=== PATIENT | male | born 1995 | race Caucasian/White ===

== ENCOUNTER → 2021-01-05 09:52 | Outpatient (BNVA) | payer SELFPAY | PROVIDERS: Visit Provider Internal Medicine | DX: F11.99 Opioid use, unspecified with unspecified opioid-induced disorder (principal) | CPT/HCPCS: 80305; 99202 ==

== ENCOUNTER → 2021-01-12 15:28 | Outpatient (BNVA) | payer SELFPAY | PROVIDERS: Visit Provider Internal Medicine | DX: Z51.81 Encounter for therapeutic drug level monitoring (principal) | CPT/HCPCS: 80305; 99211 ==

== ENCOUNTER 2023-02-02 13:02 | Emergency (ER) | payer MEDICAID, SELFPAY ==
--- NOTE | 2023-02-02 13:26 | ED_ITS ---
HPI - General Adult General Chief complaint: Eye Problems <GAMA Cox - Last Filed: 02/02/23 13:43> Stated complaint: r eye inj at work <GAMA Cox - Last Filed: 02/02/23 13:43> Time Seen by Provider: 02/02/23 13:45 <GAMA Cox - Last Filed: 02/02/23 13:43> Source: patient <GAMA Josue - Last Filed: 02/02/23 15:15> Mode of arrival: ambulatory <GAMA Josue Last Filed: 02/02/23 15:15> Limitations: no limitations <GAMA Josue Last Filed: 02/02/23 15:15> History of Present Illness HPI narrative: Patient is a 27 year old assigned male at with a history of opiate use disorder presenting to the emergency department today with right eye pain. Patient states that he was weed whacking when a rock kicked up and hit him in his right eye. Patient denies any dizziness, lightheadedness, abdominal pain, nausea, vomiting, fever, chills, blurry vision, double vision, loss of vision, chest pain, difficulty breathing, shortness of breath, back pain, night sweats, pain with urination, increased urinary frequency, increased urinary urgency, blood in his urine or stool, syncope or a near syncopal episode, bowel incontinence, bladder incontinence, bowel retention, bladder retention, or any other complaints at this time. <GAMA Josue Last Filed: 02/02/23 15:15> Onset (ago): minute(s) <GAMA Josue - Last Filed: 02/02/23 15:15> Location: eyes and right <GAMA Josue Last Filed: 02/02/23 15:15> Radiation: non-radiation <GAMA Josue Last Filed: 02/02/23 15:15> Severity: mild <GAMA Josue Last Filed: 02/02/23 15:15> Severity scale (1-10): 2 <GAMA Josue Last Filed: 02/02/23 15:15> Quality: aching and dull <GAMA Josue Last Filed: 02/02/23 15:15> Pain Consistency: constant <GAMA Josue Last Filed: 02/02/23 15:15> Relieving factors: none <GAMA Josue Last Filed: 02/02/23 15:15> Exacerbating factors: none <GAMA Josue Last Filed: 02/02/23 15:15> Associated symptoms: denies other symptoms <GAMA Josue Last Filed: 02/02/23 15:15> Treatments prior to arrival: none <GAMA Josue Last Filed: 02/02/23 15:15> Related Data Home medications: Previous Rx's Medication Instructions Recorded clonidine HCl 0.1 mg tablet 0.1 mg PO TID 7 days #21 tabs 01/05/21 hydroxyzine pamoate 25 mg capsule 25 mg PO TID PRN nausea and 01/05/21 (Vistaril) vomiting 7 days #21 caps naloxone 4 mg/actuation nasal 4 mg intranasal Q2M PRN opioid 01/05/21 spray (Narcan) overdose #2 ea trazodone 50 mg tablet 50 mg PO BEDTIME PRN sleep #30 tabs 01/05/21 buprenorphine 8 mg-naloxone 2 mg 2 film sublingual DAILY 7 days #14 01/13/21 sublingual film (Suboxone) ea erythromycin 5 mg/gram (0.5 %) eye 0.5 inch ophthalmic (eye) Q4H #3.5 02/02/23 ointment grams <GAMA Cox Last Filed: 02/02/23 13:43> Allergies/adverse reactions: Allergies Allergy/AdvReac Type Severity Reaction Status Date / Time No Known Allergies Allergy Unverified 02/02/23 13:43 <GAMA Cox Last Filed: 02/02/23 13:43> Review of Systems Constitutional: Constitutional: Reports no additional constitutional complaints, Denies chills, Denies fever(s) and Denies night sweats <GAMA Josue Last Filed: 02/02/23 15:15> Eyes: Eyes: Reports no additional eye complaints, Denies blurry vision, Denies change in vision, Denies diplopia, Denies eye discharge, Denies loss of vision and Reports eye pain (right) <GAMA Josue - Last Filed: 02/02/23 15:15> ENT: Denies dizziness <GAMA Josue - Last Filed: 02/02/23 15:15> Cardiovascular: Cardiovascular: Reports no additional cardiovascular complaints, Denies chest pain, Denies lightheadedness, Denies Loss of Consciousness and Denies dyspnea <GAMA Josue - Last Filed: 02/02/23 15:15> Respiratory: Respiratory: Reports no additional respiratory complaints and Denies dyspnea <GAMA Josue - Last Filed: 02/02/23 15:15> Gastrointestinal: Gastrointestinal: Reports no additional gastrointestinal complaints, Denies abdominal pain, Denies melena, Denies hematochezia, Denies change in bowel habits and Denies change in stool character <GAMA Josue - Last Filed: 02/02/23 15:15> Genitourinary: Genitourinary: Reports no additional male genitourinary complaints, Denies hematuria, Denies oliguria, Denies difficulty urinating, Denies dysuria, Denies urinary frequency, Denies urinary hesitancy, Denies urinary incontinence and Denies urinary urgency <GAMA Josue - Last Filed: 02/02/23 15:15> Musculoskeletal: Musculoskeletal: Reports no additional musculoskeletal complaints, Denies numbness and Denies tingling <GAMA Josue - Last Filed: 02/02/23 15:15> Neurologic: Denies dizziness, Denies loss of vision, Denies numbness and Denies tingling <GAMA Josue - Last Filed: 02/02/23 15:15> Psychiatric: Psychiatric: Reports no additional psychiatric complaints <GAMA Josue - Last Filed: 02/02/23 15:15> Endocrine: Endocrine: Reports no additional endocrine complaints <GAMA Josue - Last Filed: 02/02/23 15:15> Hematologic/Lymphatic: Hematologic/Lymphatic: Reports no additional hematologic/lymphatic complaints <GAMA Josue - Last Filed: 02/02/23 15:15> Allergic/Immunologic: Allergic/Immunologic: Reports no additional allergic/immunologic complaints <GAMA Josue - Last Filed: 02/02/23 15:15> PMFSH Past Medical History Attestation statement: The following information was validated with the patient. <GAMA Josue - Last Filed: 02/02/23 15:15> Source: old records reviewed and nursing notes reviewed <GAMA Josue - Last Filed: 02/02/23 15:15> Medical History: Medical History Opioid use disorder <GAMA Cox - Last Filed: 02/02/23 13:43> Social History Social History: Social History Advance Directives: No Advance Directives Information Provided: No <GAMA Cox - Last Filed: 02/02/23 13:43> Physical Exam ED Vital Signs: Vital Signs - 24 hr 02/02/23 13:41 Temperature 98.4 F Pulse Rate 86 Respiratory Rate 16 Blood Pressure 133/88 Pulse Oximetry 95 Oxygen Delivery Method Room Air BMI result Body Mass Index 28.9 <GAMA Cox - Last Filed: 02/02/23 13:43> Vital Signs - 24 hr 02/02/23 13:41 Temperature 98.4 F Pulse Rate 86 Respiratory Rate 16 Blood Pressure 133/88 Pulse Oximetry 95 Oxygen Delivery Method Room Air BMI result Body Mass Index 28.9 <GAMA Josue - Last Filed: 02/02/23 15:15> Const General: cooperative, no acute distress, alert and awake <GAMA Josue - Last Filed: 02/02/23 15:15> Nutritional Appearance: well nourished <GAMA Josue - Last Filed: 02/02/23 15:15> Orientation/consciousness: patient oriented x3 <GAMA Josue - Last Filed: 02/02/23 15:15> Limitations: no limitations <GAMA Josue - Last Filed: 02/02/23 15:15> HENMT Head: Yes normal to inspection and Yes atraumatic <GAMA Josue Last Filed: 02/02/23 15:15> Ears: hearing grossly normal bilaterally and external ears normal <Corrina Ptael IN - Last Filed: 02/02/23 15:15> General nose exam: Normal external nose present, no nasal discharge noted and no epistaxis <Corrina Patel IN - Last Filed: 02/02/23 15:15> Face and sinus: Yes normal facial exam, No abrasion and No laceration <Corrina Patel IN - Last Filed: 02/02/23 15:15> Mouth: Normal oral and palatal mucosa present, no drooling and no muffled voice <Corrina Patel IN - Last Filed: 02/02/23 15:15> Eyes Periorbital: periorbital findings normal <Corrina Patel IN - Last Filed: 02/02/23 15:15> Eyelids: Yes eyelids normal <Corrina Patel IN - Last Filed: 02/02/23 15:15> Conjunctivae: conjunctivae normal <Corrina Patel IN - Last Filed: 02/02/23 15:15> Corneas: corneas abnormal on the right abrasion <Corrina Woodsonloki IN - Last Filed: 02/02/23 15:15> Pupils: Equal, round and reactive pupils present <Corrina Patel IN - Last Filed: 02/02/23 15:15> EOM: EOMs intact bilaterally <Corrina Woodsonloki IN - Last Filed: 02/02/23 15:15> Neck Neck: Yes normal visual inspection, Yes full ROM and Yes no lymphadenopathy <Corrina Patel IN - Last Filed: 02/02/23 15:15> Chest Chest palpation & inspection: normal inspection of the chest <Corrina Woodsonloki IN - Last Filed: 02/02/23 15:15> Resp Effort & Inspection: normal respiratory effort and able to speak in complete sentences <Corrina Woodsonloki IN - Last Filed: 02/02/23 15:15> GI Inspection: Yes normal to inspection <Corrina Woodsonloki IN - Last Filed: 02/02/23 15:15> Neuro General: patient oriented x3 and moves all extremities <Corrina Woodsonloki IN - Last Filed: 02/02/23 15:15> Cranial nerves: Yes Equal, round and reactive pupils present <Corrina Woodsonloki IN - Last Filed: 02/02/23 15:15> Cognition (Neuro): normal cognition <Corrina PatelGAMA - Last Filed: 02/02/23 15:15> Motor exam (neuro): 5/5 motor strength present throughout <Corrina PatelGAMA - Last Filed: 02/02/23 15:15> Sensory Exam: Normal double simultaneous stimulation for sensation <Corrina PatelGAMA - Last Filed: 02/02/23 15:15> Coordination: [id number] test normal <Corrina PatelGAMA - Last Filed: 02/02/23 15:15> Extrem General: Yes normal to inspection, Yes full ROM and Yes capillary refill normal <Corrina WoodsonGAMA manjarrez - Last Filed: 02/02/23 15:15> Psych Appearance: grossly normal <Corrina PatelGAMA - Last Filed: 02/02/23 15:15> Mental Status: mental status grossly normal <Corrina WoodsonGAMA manjarrez - Last Filed: 02/02/23 15:15> Affect: normal affect <Corrinamonika WoodsonGAMA manjarrez - Last Filed: 02/02/23 15:15> Attitude: cooperative <Corrina WoodsonGAMA manjarrez - Last Filed: 02/02/23 15:15> Thought process: Normal thought process present <Corrinamonika WoodsonGAMA manjarrez - Last Filed: 02/02/23 15:15> Thought content: Normal thought content present <Corrina PatelGAMA - Last Filed: 02/02/23 15:15> Insight: Good insight present (Psych) <Corrinamonika WoodsonGAMA manjarrez - Last Filed: 02/02/23 15:15> Course Course Course Narrative: 27 year old male with PMH of opioid use disorder presents with right eye injury at work, he is a business banking sales assistant. Patient reports he wasn't wearing eye protection and a rock struck his eye. Patient denies use of glasses or contacts. Patient endorses blurry vision and photophobia. Patient denies current drug use. PE: injected right sided conjunctiva and photophobia Plan: Fluorescein stain and tetracaine, visual acuity <Billie De La Cruz PA - Last Filed: 02/02/23 13:43> Medical Decision Making Medical Decision Making MDM Narrative: Patient is a 27 year old assigned male at with a history of opiate use disorder presenting to the emergency department today with right eye pain. Patient's physical exam showed a right corneal abrasion. Patient's ocular pressures were normal at 10 on both sides. Vision 20/30 on both sides. I explained my physical exam findings as well as all test results to the patient. I answered all questions asked by the patient. I stressed the importance of the patient taking his medication as prescribed. I stressed the importance of the patient following up with his primary care provider. I stressed the importance of the patient returning to the emergency department immediately if his symptoms were to worsen or if he were to develop any dizziness, shortness of breath, difficulty breathing, chest pain, blurry vision, loss of vision, nausea, vomiting, abdominal pain, fever, chills, back pain, or any other complaints. Patient verbalized agreement and understanding with this treatment plan and discharge. <GAMA Josue - Last Filed: 02/02/23 15:15> Differential Diagnosis Differential Diagnoses: The differential diagnosis associated with the presentation includes <GAMA Josue Last Filed: 02/02/23 15:15> right eye pain, corneal abrasion <GAMA Josue Last Filed: 02/02/23 15:15> Discharge Plan Discharge Clinical Impression: Corneal abrasion <GAMA Cox Last Filed: 02/02/23 13:43> Patient Disposition: Home, Self-Care <GAMA Cox Last Filed: 02/02/23 13:43> Instructions: Corneal Abrasion (DC) <GAMA Cox Last Filed: 02/02/23 13:43> Additional Instructions: Follow up with your primary care provider. Return to the emergency department immediately if your symptoms worsen or if you develop any dizziness, shortness of breath, difficulty breathing, chest pain, blurry vision, loss of vision, nausea, vomiting, abdominal pain, fever, chills, back pain, or any other complaints. <GAMA Cox Last Filed: 02/02/23 13:43> Prescriptions: New erythromycin 5 mg/gram (0.5 %) ointment 0.5 inch ophthalmic (eye) Q4H Qty: 3.5 0RF No Action buprenorphine-naloxone [Suboxone] 8-2 mg film 2 film sublingual DAILY 7 Days Qty: 14 0RF Rx Instructions: place 1 strip/tab under (each) side of tongue Narcan 4 mg/actuation spray,non-aerosol 4 mg intranasal Q2M PRN (Reason: opioid overdose) Qty: 2 1RF Rx Instructions: spray 1 dose into ONE nostril; alternate nostrils w each dose until help arrives trazodone 50 mg tablet 50 mg PO BEDTIME PRN (Reason: sleep) Qty: 30 1RF hydroxyzine pamoate [Vistaril] 25 mg capsule 25 mg PO TID PRN (Reason: nausea and vomiting) 7 Days Qty: 21 0RF clonidine HCl 0.1 mg tablet 0.1 mg PO TID 7 Days Qty: 21 0RF <GAMA Cox - Last Filed: 02/02/23 13:43> Referrals: [facility] Family Medicine [Provider Group] (Call to establish and follow up with a primary care provider. If you already have a primary care provider, please follow up with them.) [facility] Primary Care, Jeff [Provider Group] (Call to establish and follow up with a primary care provider. If you already have a primary care provider, please follow up with them.) [facility] Primary Care,Ritesh [Provider Group] (Call to establish and follow up with a primary care provider. If you already have a primary care provider, please follow up with them.) <GAMA Cox - Last Filed: 02/02/23 13:43> Interventions: ED Discharge Assessment Last Done: 02/02/23 14:11 <GAMA Cox - Last Filed: 02/02/23 13:43> Discharge Date/Time: 02/02/23 14:11 <GAMA Cox - Last Filed: 02/02/23 13:43> Print Language: Malian <GAMA Cox - Last Filed: 02/02/23 13:43>
[2023-02-02 13:41] VITALS: BP 133/88; PULSE 86; RESP 16; TEMP 36.9; O2SAT 95; BMI 28.9
== END 2023-02-02 14:11 | disposition home or self-care (01) ==
PROVIDERS: Emergency Provider Emergency Medicine
DX: S05.01XA Injury of conjunctiva and corneal abrasion without foreign body, right eye, initial encounter (principal); W20.8XXA Other cause of strike by thrown, projected or falling object, initial encounter; Y93.H2 Activity, gardening and landscaping; Y92.017 Garden or yard in single-family (private) house as the place of occurrence of the external cause; Y99.9 Unspecified external cause status
CPT/HCPCS: 99283; 99284

== ENCOUNTER 2023-03-30 16:24 | Emergency (ER) | payer MEDICAID, SELFPAY ==
--- NOTE | 2023-03-30 16:30 | ED.GENADULT ---
HPI - General Adult General Chief complaint: Abdominal Pain Stated complaint: abd pain vomiting Time Seen by Provider: 03/30/23 17:51 Source: patient Mode of arrival: ambulatory Limitations: no limitations History of Present Illness HPI narrative: Patient is a 27-year-old male who presents emergency department for evaluation of abdominal pain with nausea and vomiting. He went to urgent care earlier today and was advised to come to the emergency department. Symptom onset was 3 days ago with upper abdominal pain, nausea and vomiting. Denies diarrhea/constipation, bloody or dark stools, dysuria, urinary frequency/urgency/hesitancy. Of note he was discharged from detox the day prior to symptom onset, detox from opiates for which she is being prescribed methadone, and reports that he was tolerating this well while in detox. Denies any recreational drug or alcohol usage. His symptoms have actually been improving over the past day and half, he is able to tolerate fluids. Related Data Previous Rx's Medication Instructions Recorded clonidine HCl 0.1 mg tablet 0.1 mg PO TID 7 days #21 tabs 01/05/21 hydroxyzine pamoate 25 mg capsule 25 mg PO TID PRN nausea and 01/05/21 (Vistaril) vomiting 7 days #21 caps naloxone 4 mg/actuation nasal 4 mg intranasal Q2M PRN opioid 01/05/21 spray (Narcan) overdose #2 ea trazodone 50 mg tablet 50 mg PO BEDTIME PRN sleep #30 tabs 01/05/21 buprenorphine 8 mg-naloxone 2 mg 2 film sublingual DAILY 7 days #14 01/13/21 sublingual film (Suboxone) ea erythromycin 5 mg/gram (0.5 %) eye 0.5 inch ophthalmic (eye) Q4H #3.5 02/02/23 ointment grams ondansetron 4 mg disintegrating 4 mg PO Q8H PRN nausea and 03/30/23 tablet vomiting #10 tabs Allergies Allergy/AdvReac Type Severity Reaction Status Date / Time No Known Allergies Allergy Verified 03/30/23 16:34 Review of Systems Review of Systems: Constitutional : No Weight loss, No Fever, No Chills ENT/Mouth :? No sore throat, No Rhinorrhea Eyes: No Swelling, No Redness Cardiovascular : No Chest Pain, No SOB, No Edema Respiratory : No Cough, No Sputum, No Wheezing Gastrointestinal : Positive Nausea, Positive Vomiting, no Diarrhea, positive abdominal pain, No Hematochezia, No Melena Genitourinary : No Dysuria, No Urinary Frequency, No Hematuria, No Urgency? Musculoskeletal : No joint pain, No Myalgias, No Joint Swelling Skin : No Skin Lesions, No rash Neuro : No Weakness, No Numbness, No Dizziness, No Headache Psych : No Anxiety/Panic, No Depression Heme/Lymph: No Bruising, No Lymphadenopathy Endocrine : No Polyuria, No Polydipsia Yes all other systems are reviewed and are negative [facility] Past Medical History Attestation statement: The following information was validated with the patient. Source: old records reviewed Medical History Opioid use disorder Social History Social History Advance Directives: No Advance Directives Information Provided: Yes Physical Exam ED Vital Signs: Vital Signs - 24 hr 03/30/23 16:31 03/30/23 18:29 Temperature 97.4 F Pulse Rate 74 58 Respiratory Rate 16 14 Blood Pressure 119/79 117/73 Pulse Oximetry 98 99 Oxygen Delivery Method Room Air Room Air BMI result Body Mass Index 28.9 Appearance: Alert.?Oriented to person, place and time. No acute distress.?Normal affect. Eyes: Pupils equal, round and reactive to light.? ENT: Pharynx normal.?? Neck: Normal inspection.? Neck supple.?? CVS: Heart sounds normal. Normal heart rate and rhythm.? Pulses normal.?? Respiratory: No respiratory distress.? Lung sounds clear to auscultation bilaterally?? Abdomen: Soft and non-tender negative Rodriguez sign. No rebound tenderness. No rigidity. No guarding.. Normoactive bowel sounds. ? Skin: Skin warm and dry.? Normal skin color.? Extremities: No lower extremity edema.? Neuro: Moves all extremities spontaneously. Sensation intact bilaterally. Ambulates with normal steady gait. Course Course Course Narrative: This is an RME: Additional HPI, ROS, PE not included below will be deferred to primary provider. 27 year old male presents w/ abdominal pain ( epigastric and LUQ), nausea, vomiting since monday. Patient doesnt drink alcohol but concerned about pancreatitis. Also reports a foul stench coming from his mouth Plan- labs, urine Reevaluation(s) Reevaluation #1: CBC reveals no leukocytosis or anemia, CMP is overall unremarkable, lipase is within normal limits, in addition to physical examination does not appear consistent with cholecystitis, pancreatitis, not consistent with acute abdomen. Urinalysis is without evidence of infection or hematuria. Symptoms likely consistent with viral gastroenteritis, and his symptoms are actually improving. Discussed plan of care, advised Zofran in the ED and p.o. trial, however he would like to be discharged at this time which I think is reasonable. He is stable. Reviewed worrisome signs and symptoms that would warrant re-evaluation in the emergency department. Outpatient follow-up with primary care provider as needed. Time: 18:03 Medical Decision Making Medical Decision Making [facility] Narrative: Patient is a 27-year-old male with history of opiate use disorder for which he is prescribed methadone presenting to emergency department for evaluation of abdominal pain with nausea and vomiting as noted in HPI. At the time of my examination is overall well-appearing, nontoxic, afebrile. Abdominal examination is benign, unlikely acute abdomen. Will obtain CBC to evaluate for leukocytosis/ anemia, CMP and lipase to evaluate for abnormal electrolytes /abnormal renal function/ abnormal hepatic/biliary function, and Urinalysis. Differential Diagnosis Differential Diagnoses: The differential diagnosis associated with the presentation includes (Cholecystitis, cholelithiasis, cholangitis, pancreatitis, gastroenteritis, GERD, urinary tract infection, nephrolithiasis) Lab Data [facility] Lab Attestation statement: I reviewed the patient's lab results. (Please see course for additional explanation) 03/30/23 16:47 03/30/23 16:48 Labs: Lab Results 03/30/23 03/30/23 03/30/23 Range/Units 16:47 16:48 18:23 WBC 6.7 (4.8-10.8) X10*3/uL RBC 5.38 (4.60-5.80) X10*6/uL Hgb 15.0 (14.0-18.0) g/dl Hct 43.4 (42.0-52.0) % MCV 80.7 (80.0-98.0) fL MCH 27.9 (27.0-33.0) pg MCHC 34.6 (31.0-36.0) g/dl RDW 12.7 (11.0-16.0) % Plt Count 257 (160-400) X10*3/uL MPV 9.6 (9.4-12.4) fL Immature Gran % (Auto) 0.3 (0.0-0.4) % Neut % (Auto) 51.1 (45-73) % Lymph % (Auto) 34.7 (20-40) % [place] % (Auto) 11.9 H (2-11) % Eos % (Auto) 1.6 (0-4) % Baso % (Auto) 0.4 (0-2) % Lymph # (Auto) 2.3 (1.2-4.9) X10*3/uL [place] # (Auto) 0.8 (0.1-1.2) X10*3/uL Eos # (Auto) 0.1 (0.0-0.4) X10*3/uL Baso # (Auto) 0.0 (0.0-0.2) X10*3/uL Abs Immat Gran (auto) 0.02 (0.00-0.03) X10*3/uL Absolute Neuts (auto) 3.4 (2.0-8.3) x10*3/uL Absolute Nucleated RBC 0.000 (0.0-0.012) X10*3/uL Nucleated RBC % (auto) 0.0 (0.0-0.2) /100WBC Sodium 137 (135-145) mmol/L Potassium 3.7 (3.3-5.1) mmol/L Chloride 99 (96-108) mmol/L Carbon Dioxide 25 (22-29) mmol/L Anion Gap 17 (12-20) BUN 13 (9-16) mg/dL Creatinine 0.77 (0.5-1.4) mg/dL Estim Creat Clear Calc 183.7 Estimated GFR > 60 Random Glucose 105 (60-115) mg/dL Calcium 10.6 H (8.4-10.2) mg/dL Magnesium 2.0 (1.6-2.6) mg/dL Total Bilirubin 0.7 (0.0-1.0) mg/dL AST 15 (5-37) U/L ALT 23 (0-40) U/L Alkaline Phosphatase 83 (39-117) U/L Total Protein 8.3 H (6.5-8.0) g/dL Albumin 4.8 (3.5-5.0) g/dL Lipase 8 (8-78) U/L Urine Color Dark Yellow Urine Appearance Clear Urine pH 5.5 (5.0-9.0) Ur Specific [place] >= 1.030 H (1.005-1.025) Urine Protein Negative (Neg-Trace) mg/dL Urine Glucose (UA) Negative (Negative) mg/dL Urine Ketones Trace (Negative) mg/dL Urine Blood Negative (Negative) Urine Nitrite Negative (Negative) Ur Leukocyte Esterase Negative (Negative) Independent Historian Clinical information obtained from an independent historian. History obtained from or confirmed by: Parent (Mother's present who affirms history) Tests considered The following testing was considered but not selected: I considered ultrasound imaging of the abdomen, however abdominal examination is benign, low suspicion for acute abdomen at this time Prescription Management I considered prescription management with: Other (Antiemetic) Discharge Plan Discharge Clinical Impression: Gastroenteritis Patient Disposition: Home, Self-Care Instructions: Gastroenteritis (ED), Acute Nausea and Vomiting (ED) Additional Instructions: As we discussed, your blood work today was all normal, this is very reassuring. Your urine sample ____ You symptoms are most likely due to a viral stomach bug. I have sent a prescription for Zofran, a nausea medication to your pharmacy. Introduce a bland diet including crackers, bananas, rice, soup, toast, and boiled vegetables. This may progress to plain baked or boiled chicken or turkey. Avoid dairy products or foods high in fat or grease. Return to the emergency department with any new or worsening symptoms or concerns. Follow-up with primary care provider as needed Prescriptions: New ondansetron 4 mg tablet,disintegrating 4 mg PO Q8H PRN (Reason: nausea and vomiting) Qty: 10 0RF No Action buprenorphine-naloxone [Suboxone] 8-2 mg film 2 film sublingual DAILY 7 Days Qty: 14 0RF Rx Instructions: place 1 strip/tab under (each) side of tongue erythromycin 5 mg/gram (0.5 %) ointment 0.5 inch ophthalmic (eye) Q4H Qty: 3.5 0RF Narcan 4 mg/actuation spray,non-aerosol 4 mg intranasal Q2M PRN (Reason: opioid overdose) Qty: 2 1RF Rx Instructions: spray 1 dose into ONE nostril; alternate nostrils w each dose until help arrives trazodone 50 mg tablet 50 mg PO BEDTIME PRN (Reason: sleep) Qty: 30 1RF hydroxyzine pamoate [Vistaril] 25 mg capsule 25 mg PO TID PRN (Reason: nausea and vomiting) 7 Days Qty: 21 0RF clonidine HCl 0.1 mg tablet 0.1 mg PO TID 7 Days Qty: 21 0RF Referrals: Physician,Unknown J [Primary Care Provider] -
[2023-03-30 16:31] VITALS: BP 119/79; PULSE 74; RESP 16; TEMP 36.3; O2SAT 98; BMI 28.9
[2023-03-30 16:51] LABS: MANUAL DIFF FLAG NO
[2023-03-30 17:08] LABS: Basophils Percent Auto 0.4 % (0-2); Eosinophils Absolute Auto 0.1 X10*3/uL (0.0-0.4); Eosinophils Percent Auto 1.6 % (0-4); Hematocrit 43.4 % (42.0-52.0); Imm Gran Abs Auto 0.02 X10*3/uL (0.00-0.03); Imm Gran Pct Auto 0.3 % (0.0-0.4); Lymphocytes Absolute Auto 2.3 X10*3/uL (1.2-4.9); Lymphocytes Percent Auto 34.7 % (20-40); Mean Corpuscular HGB Conc 34.6 g/dl (31.0-36.0); Mean Corpuscular Hemoglobin 27.9 pg (27.0-33.0); Mean Corpuscular Volume 80.7 fL (80.0-98.0); Mean Platelet Volume 9.6 fL (9.4-12.4); Monocytes Absolute Auto 0.8 X10*3/uL (0.1-1.2); Monocytes Percent Auto 11.9 % (2-11); Neutrophils Absolute Auto 3.4 x10*3/uL (2.0-8.3); Neutrophils Percent Auto 51.1 % (45-73); Platelet Count 257 X10*3/uL (160-400); Red Blood Count 5.38 X10*6/uL (4.60-5.80); Red Cell Distribution Width 12.7 % (11.0-16.0); White Blood Count 6.7 X10*3/uL (4.8-10.8)
[2023-03-30 17:09] LABS: Alanine Aminotransferase 23 U/L (0-40); Albumin Level 4.8 g/dL (3.5-5.0); Alkaline Phosphatase 83 U/L (39-117); Anion Gap 17 (12-20); Aspartate Amino Transferase 15 U/L (5-37); Bilirubin Total 0.7 mg/dL (0.0-1.0); Blood Urea Nitrogen 13 mg/dL (9-16); Calcium 10.6 mg/dL (8.4-10.2); Carbon Dioxide 25 mmol/L (22-29); Chloride 99 mmol/L (96-108); Creatinine Clr Calc Pharmacy 183.7; Estimated Glomerular Filt Rate > 60; Glucose Random 105 mg/dL (60-115); Lipase 8 U/L (8-78); Potassium 3.7 mmol/L (3.3-5.1); Sodium 137 mmol/L (135-145); Total Protein 8.3 g/dL (6.5-8.0)
[2023-03-30 18:29] VITALS: BP 117/73; PULSE 58; RESP 14; O2SAT 99
[2023-03-30 18:29] LABS: Appearance Urine Clear; Color Urine Dark Yellow; Glucose Urine UA Negative (Negative); Leukocyte Esterase Urine Negative (Negative); Nitrite Urine Negative (Negative); PH 5.5 (5.0-9.0); Specific Gravity - Urine >= 1.030 (1.005-1.025); Urine Blood Negative (Negative); Urine Ketones Trace mg/dL (Negative); Urine Protein Negative (Neg-Trace)
== END 2023-03-30 18:54 | disposition home or self-care (01) ==
PROVIDERS: Physician Assistant; Emergency Provider Student in an Organized Health Care Education/Training Program
DX: K52.9 Noninfective gastroenteritis and colitis, unspecified (principal); Z79.899 Other long term (current) drug therapy
CPT/HCPCS: 36415; 80053; 81003; 83690; 83735; 85025; 99283